=== PATIENT | female | born 2000 | race Caucasian/White ===

== ENCOUNTER 2023-04-29 16:45 | Outpatient (CLI) | payer OTHER, SELFPAY | END 2023-04-29 16:46 | disposition home or self-care (01) | PROVIDERS: PCP Family Medicine; Visit Provider Physician Assistant | DX: Z11.3 Encounter for screening for infections with a predominantly sexual mode of transmission (principal) | CPT/HCPCS: 86592; 86703; 86803; 87340 ==

== ENCOUNTER 2025-05-30 10:17 | Outpatient (CLI) | payer OTHER, SELFPAY ==
[2025-05-30 14:04] LABS: Bacterial Vaginosis* Negative (Negative); Candida glab/krus NOT DETECTED (No Detected)
[2025-05-30 14:33] LABS: Chlamydia DNA Amplified* NOT DETECTED (No Detected); GC DNA Amplified* NOT DETECTED (No Detected)
[2025-06-06 09:33] LABS: Pap Test Screened Manually Done
== END 2025-05-30 10:18 | disposition home or self-care (01) ==
PROVIDERS: PCP Family Medicine; Visit Provider Physician Assistant
DX: N93.0 Postcoital and contact bleeding (principal); R53.83 Other fatigue; L65.9 Nonscarring hair loss, unspecified; Z12.4 Encounter for screening for malignant neoplasm of cervix; Z11.51 Encounter for screening for human papillomavirus (HPV)
CPT/HCPCS: 80053; 81513; 82627; 82728; 84270; 84402; 84403; 84443; 87481; 87491; 87591; 87624; 87625; 87661; 88141; 88142; 88175